=== PATIENT | female | born 1970 | race Caucasian/White ===

== ENCOUNTER 2018-08-14 10:58 | Day surgery (SDC) | payer OTHER ==
[~2018-08-14] VITALS: Ht 167.6 cm; Wt 104.0 kg
[~2018-08-14 10:58] MED LIST: CETI10; OXYACE5T PO
--- NOTE | 2018-08-14 13:07 | NUR ---
08/14/18 0927 Ria Nash UPDATED PT ON DELAY. PT STATES THAT SHE'S "OK WITH WAITING, JUST WANT TO GET IT DONE." PT REPORTS COMFORT AT THIS TIME, BED IN LOWEST POSITION, CALL LIGHT IN REACH.
--- NOTE | 2018-08-14 15:02 | NUR ---
08/14/18 1502 Karon Duncan O2 REMOVED WILL MONITOR SATS
--- NOTE | 2018-08-14 15:30 | NUR ---
08/14/18 1530 Holly Toro PT ARRIVES TO SDU DENIES PAIN. RIGHT FOOT ELEVATED WITH PILLOW AND ICE PACK UNDER RIGHT KNEE. PT DENIES PAIN MEDICATIONS AT THIS TIME. PT TOLERATING PO FLUIDS WELL. AUNT ALDEN AT BEDSIDE. 1529 PT VOMITED APPROXIMATELY 30MLS OF HER PEPSI. PT MEDICATED PER NAUSEA AND STATES SHE FEELS BETTER AND MORE AWAKE NOW. INCENTIVE SPIROMETER TEACHING PROVIDED TO ASSIST WITH OXYGENATION.
== END 2018-08-14 16:19 | disposition home or self-care (01) ==
LOC: ORSCSDS 10:58
PROVIDERS: Podiatrist Foot & Ankle Surgery
PROC: 0QSN04Z Reposition Right Metatarsal with Internal Fixation Device, Open Approach (ICD-10-PCS; principal; 2018-08-14 12:30)
PROC: 0QSQ04Z Reposition Right Toe Phalanx with Internal Fixation Device, Open Approach (ICD-10-PCS; principal; 2018-08-14 12:30)
DX: M77.41 Metatarsalgia, right foot (principal); M21.611 Bunion of right foot; E66.01 Morbid (severe) obesity due to excess calories; Z68.37 Body mass index [BMI] 37.0-37.9, adult
CPT/HCPCS: C1713; C1769; J0690; J1100; J1885; J2405; J2550; J2710; J2765; J3010

== ENCOUNTER → 2019-10-15 | Outpatient (CLI) | payer OTHER ==
[2019-10-15 12:41] LABS: Source, Urine Clean Catch
[2019-10-15 12:54] LABS: Appearance, Urine Cloudy (Clear); Bilirubin, Urine Neg (Neg); Blood, Urine 2+ (Neg); Color, Urine Yellow (P-Yellow); Glucose Qualitative, Urine Neg (Normal); Ketones, Urine Neg (Neg); Leukocyte Esterase, Urine 2+ (Neg); Nitrite, Urine Pos (Neg); Protein, Urine Trace (Neg); Urobilinogen, Urine NORM (Normal)
[2019-10-15 13:01] LABS: White Blood Cells, Urine 25-50 /hpf (0-5)
[2019-10-15 13:02] LABS: Bacteria Mod /hpf; Mucus Light (0-Heavy); Squamous Epithelial Cells Rare /hpf (Few)
== END | disposition home or self-care (01) ==
LOC: LAB EV 12:24
PROVIDERS: Nurse Practitioner
DX: R35.0 Frequency of micturition (principal)
CPT/HCPCS: 81001; 87077; 87086; 87186

== ENCOUNTER 2023-03-15 11:23 | Emergency (ER) | payer BC ==
[~2023-03-15] VITALS: Ht 167.6 cm; Wt 120.2 kg
[2023-03-15 11:55] LABS: BASOPHILS ABSOLUTE AUTO 0.05 K/mm3 (0.00-0.23); BASOPHILS PERCENT AUTO 0 % (0-2); EOSINOPHILS ABSOLUTE AUTO 0.02 K/mm3 (0.00-0.68); EOSINOPHILS PERCENT AUTO 0 % (0-6); Hematocrit 37.2 % (33.0-51.0); Hemoglobin 12.6 g/dL (11.5-16.0); IMMATURE GRAN ABSOLUTE AUTO 0.11 K/mm3 (0.00-0.10); IMMATURE GRAN PERCENT AUTO 1 % (0-1); LYMPHOCYTES ABSOLUTE AUTO 0.84 K/mm3 (0.84-5.20); LYMPHOCYTES PERCENT AUTO 4 % (21-46); MONOCYTES ABSOLUTE AUTO 1.04 K/mm3 (0.16-1.47); MONOCYTES PERCENT AUTO 6 % (4-13); Mean Corpuscular HGB 28.2 pg (26.0-34.0); Mean Corpuscular HGB Conc 33.9 g/dL (31.5-36.5); Mean Corpuscular Volume 83 fL (80-100); Mean Platelet Volume 9.5 fL (9.1-12.4); NEUTROPHILS ABSOLUTE AUTO 17.01 K/mm3 (1.96-9.15); NEUTROPHILS PERCENT AUTO 89 % (41-73); Platelet Count 353 K/mm3 (150-400); RDW Standard Deviation 42.1 fL (35.1-46.3); Red Blood Cell Count 4.47 M/mm3 (3.80-5.20); White Blood Cell Count 19.07 K/mm3 (4.00-11.30)
[2023-03-15 12:15] LABS: Albumin, Blood 2.9 g/dL (3.4-5.0); Albumin/Globulin Ratio 0.6 (0.8-1.8); Bilirubin, Total 0.9 mg/dL (0.1-1.0); Bun/Creatinine Ratio 15.9 (12.0-20.0); Calcium, Blood 8.9 mg/dL (8.5-10.1); Creatinine, Blood 1.07 mg/dL (0.40-1.00); Globulin, Blood 5.2 g/dL (2.2-4.0); Potassium, Blood 3.4 mmol/L (3.5-5.5); Total Protein, Blood 8.1 g/dL (6.4-8.2)
[2023-03-15] MEDS ORDERED: AZIT250 PO (12:53)
[2023-03-15] MEDS ORDERED: CEFP200 PO (12:53)
[2023-03-15 14:33] VITALS: BP 136/91
== END 2023-03-15 14:34 | disposition home or self-care (01) ==
LOC: ER 11:23
PROVIDERS: Physician Assistant
DX: A41.9 Sepsis, unspecified organism (principal); J18.9 Pneumonia, unspecified organism; J96.01 Acute respiratory failure with hypoxia; E87.1 Hypo-osmolality and hyponatremia; Z88.5 Allergy status to narcotic agent
CPT/HCPCS: 36415; 71046; 80053; 83605; 83690; 84145; 85025; 87040; 96374; 96375; 99284-25; A9270; J0456; J0696; J7050